=== PATIENT | female | born 1940 | race Caucasian/White ===

== ENCOUNTER 2018-06-12 12:35 | Inpatient (IN) | payer MEDICARE ==
[~2018-06-12] VITALS: Ht 149.9 cm; Wt 57.0 kg
--- NOTE | 2018-06-12 12:41 | NUR ---
PT IN BR.
[2018-06-12 13:27] LABS: BASOPHILS # (AUTO) 0.04 x10^3/uL (0-0.1); BASOPHILS % (AUTO) 1 % (0-1); EOSINOPHILS % (AUTO) 2 % (1-7); LYMPHOCYTES # (AUTO) 0.73 x10^3/uL (1-3.4); LYMPHOCYTES % (AUTO) 12 % (22-44); MD NO; MEAN CORPUSCULAR HEMOGLOBIN 27.5 pg (27.0-34.8); MEAN CORPUSCULAR HGB CONC 33.3 g/dL (32.4-35.8); MEAN CORPUSCULAR VOLUME 82.4 fL (80-100); MONOCYTES # (AUTO) 0.46 x10^3/uL (0.2-0.8); MONOCYTES % (AUTO) 7 % (2-9); NEUTROPHILS # (AUTO) 5.02 x10^3/uL (1.8-6.8); NEUTROPHILS % (AUTO) 79 % (42-75); PLATELET COUNT 396 x10^3/uL (130-400); RED BLOOD COUNT 4.96 x10^6/uL (3.82-5.3); RED CELL DISTRIBUTION WIDTH 14.1 % (9.6-15.2)
[2018-06-12 13:38] LABS: ALBUMIN 2.7 g/dL (3.4-5.0); ANION GAP 5 mmol/L (5-15); CALCIUM 8.5 mg/dL (8.5-10.1); CHLORIDE 108 mmol/L (98-107); CREATININE 0.76 mg/dL (0.55-1.02)
[2018-06-12 13:43] LABS: TROPONIN I < 0.015 ng/mL (0.000-0.045)
--- NOTE | 2018-06-12 14:00 | NUR ---
pt to ed room 37 from lobby at this time
[2018-06-12] MEDS ORDERED: LIDOCAINE-MPF 1%, 5ML ONE (14:09)
--- NOTE | 2018-06-12 14:23 | NUR ---
pt in IR for thoracentesis
--- NOTE | 2018-06-12 15:12 | NUR ---
REPORT FROM EDNA VICTOR. PT RETURNED FROM IR. PT REPORTS 11/14 R SIDED CHEST 'PRESSURE'. PT STATES SIMILAR PAIN WITH LAST THOROCENTESIS 'A FEW WEEKS AGO'. SPO2 >90% ON 4L BY NC. RESPIRATIONS EVEN/SHALLOW. FRIEND AT BS. BP/SPO2 MONITOR IN PLACE.
[2018-06-12] MEDS ORDERED: OXYcodone/APAP 10/325MG TABLET ONE (16:23)
[2018-06-12] MEDS ORDERED: OXYcodone/APAP 10/325MG TABLET PO ONE (16:30)
--- NOTE | 2018-06-12 16:37 | NUR ---
PT MEDICATED PER EMAR. IV ESTABLISHED. PT TO BE ADMITTED
--- NOTE | 2018-06-12 16:40 | NUR ---
PT ASSISTED TO BEDSIDE COMMODE. SLIGHT INCREASE IN WOB/SOB W/ ACTIVITY. SPO2 >90% ON 4L BY NC. SO STATES THAT PT WEARS 2-4L O2 BY NC AT BASELINE.
--- NOTE | 2018-06-12 17:01 | NUR ---
REPORT TO EDNA DONIS ON ONC. PT PREPARED FOR TRANSPORT
[2018-06-12 17:56] VITALS: BP 133/87
[2018-06-12] MEDS ORDERED: BISACODYL 10 MG SUPP PR PRN (18:00)
[2018-06-12] MEDS ORDERED: morphine SULFATE 10 MG/ML, 1ML IVPush PRN (18:00)
[2018-06-12] MEDS ORDERED: hydrALAzine 20 MG/ML, 1ML IVPush PRN (18:00)
[2018-06-12] MEDS ORDERED: ONDANSETRON ODT 4 MG PO PRN (18:00)
[2018-06-12] MEDS ORDERED: DOCUSATE 100 MG CAPSULE PO PRN (18:00)
[2018-06-12] MEDS ORDERED: ACETAMINOPHEN 325 MG TABLET PO PRN (18:00)
[2018-06-12] MEDS ORDERED: POLYETHYLENE GLYCOL 17 GM PACKET PO PRN (18:00)
[2018-06-12] MEDS ORDERED: ZOLPIDEM 5MG TABLET PO PRN (18:00)
[2018-06-12] MEDS ORDERED: LIDODERM 5% PATCH TD PRN (18:00)
[2018-06-12] MEDS ORDERED: ONDANSETRON 2MG/ML, 2ML IVPush PRN (18:00)
[2018-06-12] MEDS: ENOXAPARIN 40 MG/0.4 ML SQ SCH (18:00)
[2018-06-12 18:22] LABS: FREE T4 (FREE THYROXINE) 1.15 ng/dL (0.76-1.46); THYROID STIMULATING HORMONE 8.75 mIU/L (0.358-3.740)
[2018-06-12 20:00] VITALS: BP 129/83
[2018-06-12] MEDS: FAMOTIDINE 20 MG TABLET PO SCH (21:55)
[2018-06-13 01:05] VITALS: BP 121/80
[2018-06-13 05:03] LABS: BASOPHILS # (AUTO) 0.03 x10^3/uL (0-0.1); BASOPHILS % (AUTO) 1 % (0-1); EOSINOPHILS % (AUTO) 2 % (1-7); LYMPHOCYTES # (AUTO) 0.61 x10^3/uL (1-3.4); LYMPHOCYTES % (AUTO) 12 % (22-44); MD NO; MEAN CORPUSCULAR HEMOGLOBIN 27.1 pg (27.0-34.8); MEAN CORPUSCULAR HGB CONC 32.7 g/dL (32.4-35.8); MEAN CORPUSCULAR VOLUME 82.8 fL (80-100); MEAN PLATELET VOLUME 7.2 fL (7.4-10.4); MONOCYTES # (AUTO) 0.35 x10^3/uL (0.2-0.8); MONOCYTES % (AUTO) 7 % (2-9); NEUTROPHILS # (AUTO) 4.14 x10^3/uL (1.8-6.8); NEUTROPHILS % (AUTO) 79 % (42-75); PLATELET COUNT 369 x10^3/uL (130-400); RED CELL DISTRIBUTION WIDTH 13.9 % (9.6-15.2)
[2018-06-13 05:08] LABS: ANION GAP 5 mmol/L (5-15); CALCIUM 8.6 mg/dL (8.5-10.1); CHLORIDE 108 mmol/L (98-107)
[2018-06-13 05:10] LABS: CREATININE 0.67 mg/dL (0.55-1.02)
[2018-06-13 07:51] VITALS: BP 114/78
[2018-06-13] MEDS: FAMOTIDINE 20 MG TABLET PO SCH (09:31)
[2018-06-13 13:51] VITALS: BP 102/70
[2018-06-13] MEDS: ENOXAPARIN 40 MG/0.4 ML SQ SCH (18:00)
== END 2018-06-13 19:23 | disposition home or self-care (01) | DRG 186 ==
LOC: ED 16:04 → EDIP 16:29 → 3NW 17:23
PROVIDERS: ADMIT Internal Medicine; ATTEND Internal Medicine
PROC: 0W993ZZ Drainage of Right Pleural Cavity, Percutaneous Approach (ICD-10-PCS; principal; 2018-06-12)
DX: J90 Pleural effusion, not elsewhere classified (principal); J96.01 Acute respiratory failure with hypoxia; J98.11 Atelectasis; E03.9 Hypothyroidism, unspecified; Z92.21 Personal history of antineoplastic chemotherapy; Z92.3 Personal history of irradiation; Z85.3 Personal history of malignant neoplasm of breast; Z90.11 Acquired absence of right breast and nipple
CPT/HCPCS: 32555; 36415; 71045; 80048; 82040; 84439; 84443; 84484; 85025; 93005; 99285; G0378

== ENCOUNTER → 2018-06-16 | Outpatient (CLI) | payer MEDICARE ==
[~2018-06-16] MED LIST: LIDOCAINE-MPF 1%, 5ML ONE
== END | disposition home or self-care (01) ==
LOC: RAD 14:18
PROVIDERS: ATTEND Internal Medicine Hematology & Oncology
DX: J91.0 Malignant pleural effusion (principal)
CPT/HCPCS: 32555; 71045

== ENCOUNTER → 2018-06-19 | Outpatient (CLI) | payer MEDICARE | END | disposition home or self-care (01) | LOC: RAD 14:20 | PROVIDERS: ATTEND Internal Medicine Hematology & Oncology | DX: J90 Pleural effusion, not elsewhere classified (principal) | CPT/HCPCS: 32555 ==

== ENCOUNTER 2018-06-24 21:11 | Inpatient (IN) | payer MEDICARE ==
[~2018-06-24] VITALS: Ht 149.9 cm; Wt 61.6 kg
[2018-06-24] MEDS ORDERED: PROPOFOL 100 ML IV ONE (21:17)
[2018-06-24] MEDS ORDERED: SODIUM CHLORIDE FLUSH 10ML SYR IVF ONE (21:30)
[2018-06-24] MEDS ORDERED: PLEASE ENTER HEIGHT AND WEIGHT MC SCH (21:30)
[2018-06-24] MEDS ORDERED: PROPOFOL 100 ML IV SCH (21:30)
[2018-06-24 21:39] LABS: BASOPHILS % (AUTO) 0 % (0-1); EOSINOPHILS # (AUTO) 0.02 x10^3/uL (0-0.4); EOSINOPHILS % (AUTO) 0 % (1-7); LYMPHOCYTES # (AUTO) 0.46 x10^3/uL (1-3.4); LYMPHOCYTES % (AUTO) 5 % (22-44); MD NO; MEAN CORPUSCULAR HEMOGLOBIN 27.4 pg (27.0-34.8); MEAN CORPUSCULAR HGB CONC 33.2 g/dL (32.4-35.8); MEAN CORPUSCULAR VOLUME 82.5 fL (80-100); MONOCYTES # (AUTO) 0.07 x10^3/uL (0.2-0.8); MONOCYTES % (AUTO) 1 % (2-9); NEUTROPHILS # (AUTO) 7.86 x10^3/uL (1.8-6.8); NEUTROPHILS % (AUTO) 93 % (42-75); PLATELET COUNT 394 x10^3/uL (130-400); RED BLOOD COUNT 4.63 x10^6/uL (3.82-5.3)
[2018-06-24 21:48] LABS: INTERNATIONAL NORMALIZED RATIO 1.01 (0.93-1.1); PROTHROMBIN TIME 10.6 Seconds (9.6-11.5)
[2018-06-24 21:51] LABS: ALANINE AMINOTRANSFERASE 44 U/L (12-78); ALBUMIN 2.5 g/dL (3.4-5.0); ANION GAP 7 mmol/L (5-15); CALCIUM 8.4 mg/dL (8.5-10.1); CHLORIDE 105 mmol/L (98-107); CREATININE 0.61 mg/dL (0.55-1.02)
[2018-06-24 21:55] LABS: ALKALINE PHOSPHATASE 188 U/L (45-117); BILIRUBIN,TOTAL 0.6 mg/dL (0.2-1.0); TOTAL PROTEIN 6.2 g/dL (6.4-8.2); TROPONIN I < 0.015 ng/mL (0.000-0.045)
[2018-06-24] MEDS ORDERED: SENNOSIDES 8.8 MG/5 ML ORAL SOL NG PRN (22:30)
[2018-06-24] MEDS ORDERED: FUROSEMIDE 20 MG/2 ML IV ONE (22:30)
[2018-06-24] MEDS ORDERED: FENTANYL PF 100 MCG/2ML IVPush PRN (22:30)
[2018-06-24] MEDS ORDERED: SENNA/DOCUSATE TABLET NG PRN (22:30)
[2018-06-24] MEDS ORDERED: LIDOCAINE-MPF 1%, 2ML ENDO PRN (22:30)
[2018-06-24] MEDS ORDERED: PHARMACY MAY ADJ FOR RENAL FX MC SCH (22:30)
[2018-06-24] MEDS ORDERED: BISACODYL 10 MG SUPP PR PRN (22:30)
[2018-06-24] MEDS ORDERED: FUROSEMIDE 20 MG/2 ML ONE (22:51)
[2018-06-24] MEDS: FAMOTIDINE 20 MG/2 ML IV SCH (23:48)
[2018-06-25 00:24] VITALS: BP 91/59
[2018-06-25] MEDS: ALBUTEROL/IPRATROPIUM 2.5MG/0.5MG, 3 ML INLINE SCH ×6 (02:33→22:30)
[2018-06-25 04:00] VITALS: BP 90/58
[2018-06-25] MEDS: PROPOFOL 100 ML IV PRN ×2 (04:24→14:47)
[2018-06-25 04:25] LABS: BASOPHILS # (AUTO) 0.02 x10^3/uL (0-0.1); BASOPHILS % (AUTO) 0 % (0-1); EOSINOPHILS # (AUTO) 0.03 x10^3/uL (0-0.4); EOSINOPHILS % (AUTO) 0 % (1-7); LYMPHOCYTES # (AUTO) 0.75 x10^3/uL (1-3.4); LYMPHOCYTES % (AUTO) 9 % (22-44); MD NO; MEAN CORPUSCULAR HEMOGLOBIN 27.8 pg (27.0-34.8); MEAN CORPUSCULAR HGB CONC 33.9 g/dL (32.4-35.8); MEAN CORPUSCULAR VOLUME 81.9 fL (80-100); MEAN PLATELET VOLUME 6.9 fL (7.4-10.4); MONOCYTES # (AUTO) 0.37 x10^3/uL (0.2-0.8); MONOCYTES % (AUTO) 5 % (2-9); NEUTROPHILS # (AUTO) 6.93 x10^3/uL (1.8-6.8); NEUTROPHILS % (AUTO) 86 % (42-75); PLATELET COUNT 341 x10^3/uL (130-400); RED BLOOD COUNT 4.18 x10^6/uL (3.82-5.3)
[2018-06-25 04:37] LABS: ALANINE AMINOTRANSFERASE 37 U/L (12-78); ALBUMIN 2.4 g/dL (3.4-5.0); ANION GAP 6 mmol/L (5-15); CALCIUM 8.3 mg/dL (8.5-10.1); CHLORIDE 106 mmol/L (98-107)
[2018-06-25 04:40] LABS: ALKALINE PHOSPHATASE 155 U/L (45-117); BILIRUBIN,TOTAL 0.9 mg/dL (0.2-1.0); CREATININE 0.73 mg/dL (0.55-1.02); TOTAL PROTEIN 5.4 g/dL (6.4-8.2)
[2018-06-25] MEDS: FAMOTIDINE 20 MG/2 ML IV SCH ×2 (09:22→23:12)
--- NOTE | 2018-06-25 10:17 | NUR ---
TF GOAL: w/ propofol: PROMOTE @ 45ML/HR off propofol: PROMOTE @ 50ML/HR
[2018-06-25 11:48] LABS: MICROSCOPIC NOT IND
[2018-06-25 11:49] LABS: CULTURE INDICATED? NO
[2018-06-25] MEDS ORDERED: LIDOCAINE-MPF 1%, 5ML ONE (12:41)
[2018-06-25] MEDS ORDERED: LIDOCAINE 1%, 20ML ONE (12:41)
[2018-06-25] MEDS: SODIUM CHLORIDE 0.9% 1,000 ML IV SCH (15:58)
[2018-06-26] MEDS: PROPOFOL 100 ML IV PRN ×2 (02:16→11:52)
[2018-06-26] MEDS: ALBUTEROL/IPRATROPIUM 2.5MG/0.5MG, 3 ML INLINE SCH ×4 (02:30→14:30)
[2018-06-26 04:00] VITALS: BP 128/85
[2018-06-26 04:45] LABS: BASOPHILS # (AUTO) 0.01 x10^3/uL (0-0.1); BASOPHILS % (AUTO) 0 % (0-1); EOSINOPHILS # (AUTO) 0.03 x10^3/uL (0-0.4); EOSINOPHILS % (AUTO) 1 % (1-7); LYMPHOCYTES # (AUTO) 0.54 x10^3/uL (1-3.4); LYMPHOCYTES % (AUTO) 8 % (22-44); MD NO; MEAN CORPUSCULAR HEMOGLOBIN 27.7 pg (27.0-34.8); MEAN CORPUSCULAR HGB CONC 33.6 g/dL (32.4-35.8); MEAN CORPUSCULAR VOLUME 82.6 fL (80-100); MEAN PLATELET VOLUME 7.5 fL (7.4-10.4); MONOCYTES # (AUTO) 0.49 x10^3/uL (0.2-0.8); MONOCYTES % (AUTO) 7 % (2-9); NEUTROPHILS # (AUTO) 6.04 x10^3/uL (1.8-6.8); NEUTROPHILS % (AUTO) 85 % (42-75); PLATELET COUNT 316 x10^3/uL (130-400); RED BLOOD COUNT 3.92 x10^6/uL (3.82-5.3); RED CELL DISTRIBUTION WIDTH 14.3 % (9.6-15.2)
[2018-06-26 05:06] LABS: ANION GAP 6 mmol/L (5-15); CALCIUM 7.6 mg/dL (8.5-10.1); CHLORIDE 109 mmol/L (98-107); CREATININE 0.68 mg/dL (0.55-1.02)
[2018-06-26] MEDS: SODIUM CHLORIDE 0.9% 1,000 ML IV SCH ×2 (05:25→17:57)
[2018-06-26] MEDS ORDERED: SIMETHICONE 125 MG CHEW TAB PO PRN (09:00)
[2018-06-26] MEDS: FAMOTIDINE 20 MG/2 ML IV SCH ×2 (09:54→22:51)
[2018-06-26] MEDS ORDERED: LIDOCAINE-MPF 1%, 5ML ONE (14:34)
[2018-06-26] MEDS: HEPARIN 5,000 UNITS/ML, 1ML SQ SCH ×2 (15:00→16:39)
[2018-06-26] MEDS ORDERED: FENTANYL PF 100 MCG/2ML ONE (15:01)
[2018-06-26] MEDS: ACETAMINOPHEN 325 MG TABLET PO PRN (18:04)
[2018-06-27] MEDS: ACETAMINOPHEN 325 MG TABLET PO PRN ×4 (00:13→16:21)
[2018-06-27] MEDS: HEPARIN 5,000 UNITS/ML, 1ML SQ SCH ×3 (01:56→17:36)
[2018-06-27 04:00] VITALS: BP 127/84
[2018-06-27] MEDS: LACTULOSE 20 GM/30 ML UDC NG PRN (05:36)
[2018-06-27 06:57] LABS: BASOPHILS # (AUTO) 0.01 x10^3/uL (0-0.1); BASOPHILS % (AUTO) 0 % (0-1); EOSINOPHILS % (AUTO) 1 % (1-7); LYMPHOCYTES % (AUTO) 8 % (22-44); MD NO; MEAN CORPUSCULAR HEMOGLOBIN 27.7 pg (27.0-34.8); MEAN CORPUSCULAR HGB CONC 33.6 g/dL (32.4-35.8); MEAN CORPUSCULAR VOLUME 82.2 fL (80-100); MEAN PLATELET VOLUME 7.4 fL (7.4-10.4); MONOCYTES # (AUTO) 0.55 x10^3/uL (0.2-0.8); MONOCYTES % (AUTO) 8 % (2-9); NEUTROPHILS # (AUTO) 5.89 x10^3/uL (1.8-6.8); NEUTROPHILS % (AUTO) 83 % (42-75); PLATELET COUNT 323 x10^3/uL (130-400); RED BLOOD COUNT 4.39 x10^6/uL (3.82-5.3); RED CELL DISTRIBUTION WIDTH 14.6 % (9.6-15.2)
[2018-06-27 07:08] LABS: ANION GAP 6 mmol/L (5-15); CALCIUM 8.3 mg/dL (8.5-10.1); CHLORIDE 112 mmol/L (98-107); CREATININE 0.61 mg/dL (0.55-1.02)
[2018-06-27] MEDS: SODIUM CHLORIDE 0.9% 1,000 ML IV SCH ×2 (08:59→21:30)
[2018-06-27] MEDS: FAMOTIDINE 20 MG/2 ML IV SCH ×2 (09:05→22:35)
[2018-06-27] MEDS ORDERED: ACETAMINOPHEN 650 MG/20.3 ML UDC PO PRN (17:30)
[2018-06-27 20:42] VITALS: BP 137/87
[2018-06-27] MEDS: OXYcodone 5 MG/5 ML ORAL.SOL UDC PO PRN (21:30)
[2018-06-28] VITALS: BP 135/80
[2018-06-28] MEDS: HEPARIN 5,000 UNITS/ML, 1ML SQ SCH ×3 (01:32→17:34)
[2018-06-28] MEDS: OXYcodone 5 MG/5 ML ORAL.SOL UDC PO PRN ×5 (01:32→22:18)
[2018-06-28 03:54] VITALS: BP 122/79
[2018-06-28 04:02] LABS: BASOPHILS # (AUTO) 0.06 x10^3/uL (0-0.1); BASOPHILS % (AUTO) 1 % (0-1); EOSINOPHILS # (AUTO) 0.18 x10^3/uL (0-0.4); EOSINOPHILS % (AUTO) 3 % (1-7); LYMPHOCYTES # (AUTO) 0.61 x10^3/uL (1-3.4); LYMPHOCYTES % (AUTO) 9 % (22-44); MD NO; MEAN CORPUSCULAR HEMOGLOBIN 26.6 pg (27.0-34.8); MEAN CORPUSCULAR HGB CONC 32.2 g/dL (32.4-35.8); MEAN CORPUSCULAR VOLUME 82.6 fL (80-100); MEAN PLATELET VOLUME 7.2 fL (7.4-10.4); MONOCYTES # (AUTO) 0.51 x10^3/uL (0.2-0.8); MONOCYTES % (AUTO) 7 % (2-9); NEUTROPHILS # (AUTO) 5.84 x10^3/uL (1.8-6.8); NEUTROPHILS % (AUTO) 81 % (42-75); PLATELET COUNT 326 x10^3/uL (130-400); RED BLOOD COUNT 4.23 x10^6/uL (3.82-5.3); RED CELL DISTRIBUTION WIDTH 14.4 % (9.6-15.2)
[2018-06-28 04:10] LABS: ANION GAP 7 mmol/L (5-15); CALCIUM 8.1 mg/dL (8.5-10.1); CHLORIDE 112 mmol/L (98-107); CREATININE 0.51 mg/dL (0.55-1.02)
[2018-06-28 06:49] VITALS: BP 114/79
[2018-06-28] MEDS: FAMOTIDINE 20 MG/2 ML IV SCH ×2 (10:28→22:19)
[2018-06-28] MEDS: SODIUM CHLORIDE 0.9% 1,000 ML IV SCH ×2 (11:25→22:51)
[2018-06-28 12:09] VITALS: BP 113/76
[2018-06-28 19:29] VITALS: BP 113/73
[2018-06-29] MEDS: OXYcodone 5 MG/5 ML ORAL.SOL UDC PO PRN ×5 (00:49→22:51)
[2018-06-29] MEDS: HEPARIN 5,000 UNITS/ML, 1ML SQ SCH ×3 (00:49→17:00)
[2018-06-29 01:04] VITALS: BP 112/68
[2018-06-29 06:08] LABS: BASOPHILS # (AUTO) 0.03 x10^3/uL (0-0.1); BASOPHILS % (AUTO) 1 % (0-1); EOSINOPHILS # (AUTO) 0.13 x10^3/uL (0-0.4); EOSINOPHILS % (AUTO) 2 % (1-7); LYMPHOCYTES # (AUTO) 0.87 x10^3/uL (1-3.4); LYMPHOCYTES % (AUTO) 16 % (22-44); MD NO; MEAN CORPUSCULAR HEMOGLOBIN 27.4 pg (27.0-34.8); MEAN CORPUSCULAR HGB CONC 33.4 g/dL (32.4-35.8); MEAN PLATELET VOLUME 7.8 fL (7.4-10.4); MONOCYTES # (AUTO) 0.52 x10^3/uL (0.2-0.8); MONOCYTES % (AUTO) 9 % (2-9); NEUTROPHILS % (AUTO) 73 % (42-75); PLATELET COUNT 332 x10^3/uL (130-400); RED BLOOD COUNT 4.13 x10^6/uL (3.82-5.3); RED CELL DISTRIBUTION WIDTH 15.1 % (9.6-15.2)
[2018-06-29 06:12] LABS: ANION GAP 7 mmol/L (5-15); CALCIUM 8.2 mg/dL (8.5-10.1); CHLORIDE 111 mmol/L (98-107)
[2018-06-29 06:15] LABS: CREATININE 0.66 mg/dL (0.55-1.02)
[2018-06-29 06:27] VITALS: BP 103/67
[2018-06-29 11:13] VITALS: BP 107/68
[2018-06-29] MEDS: FAMOTIDINE 20 MG/2 ML IV SCH (11:19)
[2018-06-29 12:11] VITALS: BP 109/71
[2018-06-29] MEDS: SODIUM CHLORIDE 0.9% 1,000 ML IV SCH (13:09)
[2018-06-29 18:59] VITALS: BP 124/72
[2018-06-29] MEDS: SENNA/DOCUSATE TABLET PO SCH (20:14)
[2018-06-30] MEDS: OXYcodone 5 MG/5 ML ORAL.SOL UDC PO PRN ×4 (01:23→20:07)
[2018-06-30] MEDS: HEPARIN 5,000 UNITS/ML, 1ML SQ SCH ×3 (01:23→17:54)
[2018-06-30 01:24] VITALS: BP 118/75
[2018-06-30] MEDS: SODIUM CHLORIDE 0.9% 1,000 ML IV SCH ×2 (04:58→19:21)
[2018-06-30 05:35] LABS: BASOPHILS # (AUTO) 0.03 x10^3/uL (0-0.1); BASOPHILS % (AUTO) 1 % (0-1); EOSINOPHILS # (AUTO) 0.15 x10^3/uL (0-0.4); EOSINOPHILS % (AUTO) 3 % (1-7); LYMPHOCYTES # (AUTO) 0.89 x10^3/uL (1-3.4); LYMPHOCYTES % (AUTO) 16 % (22-44); MD NO; MEAN CORPUSCULAR HEMOGLOBIN 27.8 pg (27.0-34.8); MEAN CORPUSCULAR HGB CONC 33.9 g/dL (32.4-35.8); MEAN PLATELET VOLUME 7.2 fL (7.4-10.4); MONOCYTES # (AUTO) 0.54 x10^3/uL (0.2-0.8); MONOCYTES % (AUTO) 10 % (2-9); NEUTROPHILS # (AUTO) 4.05 x10^3/uL (1.8-6.8); NEUTROPHILS % (AUTO) 72 % (42-75); PLATELET COUNT 316 x10^3/uL (130-400); RED BLOOD COUNT 4.02 x10^6/uL (3.82-5.3); RED CELL DISTRIBUTION WIDTH 14.4 % (9.6-15.2)
[2018-06-30 05:52] LABS: CHLORIDE 113 mmol/L (98-107)
[2018-06-30 06:01] LABS: ALANINE AMINOTRANSFERASE 41 U/L (12-78); ALBUMIN 1.9 g/dL (3.4-5.0); ALKALINE PHOSPHATASE 155 U/L (45-117); ANION GAP 5 mmol/L (5-15); BILIRUBIN,TOTAL 0.7 mg/dL (0.2-1.0); TOTAL PROTEIN 5.1 g/dL (6.4-8.2)
[2018-06-30 08:51] VITALS: BP 111/71
[2018-06-30] MEDS: SENNA/DOCUSATE TABLET PO SCH ×2 (10:48→21:00)
[2018-06-30 14:25] VITALS: BP 113/62
[2018-06-30 19:51] VITALS: BP 115/74
[2018-06-30] MEDS: LACTULOSE 20 GM/30 ML UDC NG PRN (20:10)
[2018-07-01 01:45] VITALS: BP 109/68
[2018-07-01] MEDS: HEPARIN 5,000 UNITS/ML, 1ML SQ SCH ×2 (02:19→09:05)
[2018-07-01 05:26] LABS: BASOPHILS # (AUTO) 0.01 x10^3/uL (0-0.1); BASOPHILS % (AUTO) 0 % (0-1); EOSINOPHILS % (AUTO) 2 % (1-7); LYMPHOCYTES # (AUTO) 0.43 x10^3/uL (1-3.4); LYMPHOCYTES % (AUTO) 9 % (22-44); MD NO; MEAN CORPUSCULAR HEMOGLOBIN 27.3 pg (27.0-34.8); MEAN CORPUSCULAR HGB CONC 33.2 g/dL (32.4-35.8); MEAN CORPUSCULAR VOLUME 82.3 fL (80-100); MEAN PLATELET VOLUME 6.9 fL (7.4-10.4); MONOCYTES # (AUTO) 0.48 x10^3/uL (0.2-0.8); MONOCYTES % (AUTO) 10 % (2-9); NEUTROPHILS # (AUTO) 3.65 x10^3/uL (1.8-6.8); NEUTROPHILS % (AUTO) 78 % (42-75); PLATELET COUNT 287 x10^3/uL (130-400); RED BLOOD COUNT 3.61 x10^6/uL (3.82-5.3); RED CELL DISTRIBUTION WIDTH 14.8 % (9.6-15.2)
[2018-07-01 05:32] LABS: ANION GAP 6 mmol/L (5-15); CALCIUM 7.7 mg/dL (8.5-10.1); CHLORIDE 112 mmol/L (98-107); CREATININE 0.45 mg/dL (0.55-1.02)
[2018-07-01 06:43] VITALS: BP 105/69
[2018-07-01] MEDS: OXYcodone 5 MG/5 ML ORAL.SOL UDC PO PRN ×2 (07:41→13:14)
[2018-07-01] MEDS: SENNA/DOCUSATE TABLET PO SCH (09:00)
[2018-07-01] MEDS ORDERED: LACT20SO13 NG (13:10)
[2018-07-01] MEDS ORDERED: OXYC5SOL8 PO (13:10)
[2018-07-01] MEDS ORDERED: SENN-177 PO (13:10)
== END 2018-07-01 13:32 | disposition hospice, home (50) | DRG 208 ==
LOC: ED 22:03 → EDIP 23:23 → CCU 23:27 → 3NW 06-27 15:58
PROVIDERS: ADMIT Internal Medicine Critical Care Medicine; ATTEND Internal Medicine Critical Care Medicine
PROC: 0BH17EZ Insertion of Endotracheal Airway into Trachea, Via Natural or Artificial Opening (ICD-10-PCS; principal; 2018-06-24)
PROC: 5A1945Z Respiratory Ventilation, 24-96 Consecutive Hours (ICD-10-PCS; 2018-06-24)
PROC: 0T9B70Z Drainage of Bladder with Drainage Device, Via Natural or Artificial Opening (ICD-10-PCS; 2018-06-25)
PROC: 0W9930Z Drainage of Right Pleural Cavity with Drainage Device, Percutaneous Approach (ICD-10-PCS; 2018-06-25)
PROC: 0W9B30Z Drainage of Left Pleural Cavity with Drainage Device, Percutaneous Approach (ICD-10-PCS; 2018-06-26)
PROC: 0W9930Z Drainage of Right Pleural Cavity with Drainage Device, Percutaneous Approach (ICD-10-PCS; 2018-06-26)
DX: J96.01 Acute respiratory failure with hypoxia (principal); E43 Unspecified severe protein-calorie malnutrition; G93.41 Metabolic encephalopathy; C79.51 Secondary malignant neoplasm of bone; I50.32 Chronic diastolic (congestive) heart failure; J91.0 Malignant pleural effusion; J98.11 Atelectasis; R59.0 Localized enlarged lymph nodes; C50.919 Malignant neoplasm of unspecified site of unspecified female breast; D63.8 Anemia in other chronic diseases classified elsewhere; Z51.5 Encounter for palliative care; I35.8 Other nonrheumatic aortic valve disorders; Z17.0 Estrogen receptor positive status [ER+]; Z17.1 Estrogen receptor negative status [ER-]; Z82.49 Family history of ischemic heart disease and other diseases of the circulatory system; Z85.3 Personal history of malignant neoplasm of breast; Z90.11 Acquired absence of right breast and nipple; Z92.21 Personal history of antineoplastic chemotherapy; Z92.3 Personal history of irradiation; Z99.81 Dependence on supplemental oxygen; Z68.27 Body mass index [BMI] 27.0-27.9, adult
CPT/HCPCS: 32550; 36415; 36600; 71045; 80048; 80053; 81003; 82803; 83735; 83880; 84100; 84478; 84484; 85025; 85610; 87070; 87081; 87205; 93005; 93306; 94002; 94003; 94150; 96374; 96375; 99291; G0378; J1644; J2704; J3010; J3490; J7620; C1729; J1940; J7030

== ENCOUNTER 2018-07-09 12:55 | Observation (INO) | payer MEDICARE ==
[~2018-07-09] VITALS: Ht 149.9 cm; Wt 56.0 kg
[~2018-07-09 12:55] MED LIST changes: +LACT20SO13 NG; -LIDOCAINE-MPF 1%, 5ML ONE; +OXYC5SOL8 PO; +SENN-177 PO
--- NOTE | 2018-07-09 13:58 | NUR ---
THIS IS A 77 YEAR OLD FEMALE WHO HAS HX OF CA. PT C/O OF RIGHT CHEST TUBE "FELL OUT".
--- NOTE | 2018-07-09 14:47 | NUR ---
REPORT RECEIVED, CARE ASSUMED. PT SITTING UP ON GURNEY, NO ACUTE DISTRESS NOTED. FAMILY AT BEDSIDE. WAITING FOR FURTHER DISPOSITION. NO NEEDS EXPRESSED AT THIS TIME.
--- NOTE | 2018-07-09 15:16 | NUR ---
DR HERNANDEZ AT BEDSIDE TO DISCUSS OPTIONS WITH PT AND PTS DAUGHTER
[2018-07-09] MEDS ORDERED: SODIUM CHLORIDE FLUSH 10ML SYR IVF ONE (15:30)
[2018-07-09] MEDS ORDERED: SODIUM CHLORIDE FLUSH 10ML SYR IVF PRN (16:00)
--- NOTE | 2018-07-09 16:19 | NUR ---
PT AMB TO BR WITH SBA
[2018-07-09 16:27] LABS: BASOPHILS # (AUTO) 0.01 x10^3/uL (0-0.1); BASOPHILS % (AUTO) 0 % (0-1); EOSINOPHILS % (AUTO) 0 % (1-7); LYMPHOCYTES # (AUTO) 0.44 x10^3/uL (1-3.4); LYMPHOCYTES % (AUTO) 11 % (22-44); MD NO; MEAN CORPUSCULAR HEMOGLOBIN 27.1 pg (27.0-34.8); MEAN CORPUSCULAR HGB CONC 32.9 g/dL (32.4-35.8); MEAN CORPUSCULAR VOLUME 82.5 fL (80-100); MEAN PLATELET VOLUME 6.8 fL (7.4-10.4); MONOCYTES # (AUTO) 0.33 x10^3/uL (0.2-0.8); MONOCYTES % (AUTO) 8 % (2-9); NEUTROPHILS # (AUTO) 3.34 x10^3/uL (1.8-6.8); NEUTROPHILS % (AUTO) 81 % (42-75); PLATELET COUNT 327 x10^3/uL (130-400); RED CELL DISTRIBUTION WIDTH 14.3 % (9.6-15.2)
[2018-07-09 16:40] LABS: ALANINE AMINOTRANSFERASE 17 U/L (12-78); ALBUMIN 2.2 g/dL (3.4-5.0); ANION GAP 5 mmol/L (5-15); CALCIUM 8.1 mg/dL (8.5-10.1); CHLORIDE 104 mmol/L (98-107); CREATININE 0.48 mg/dL (0.55-1.02)
--- NOTE | 2018-07-09 16:40 | NUR ---
REPORT CALLED TO CAL BISHOP, POC DISCUSSED.
[2018-07-09 16:43] LABS: ALKALINE PHOSPHATASE 142 U/L (45-117); BILIRUBIN,TOTAL 0.5 mg/dL (0.2-1.0); TOTAL PROTEIN 5.1 g/dL (6.4-8.2)
[2018-07-09] MEDS ORDERED: GUAIFENESIN/COD200MG-20MG/10ML LIQUID PO PRN (17:00)
[2018-07-09] MEDS ORDERED: ACETAMINOPHEN 325 MG TABLET PO PRN (17:00)
[2018-07-09] MEDS ORDERED: morphine SULFATE 10 MG/ML, 1ML IVPush PRN (17:00)
[2018-07-09] MEDS ORDERED: DOCUSATE 100 MG CAPSULE PO PRN (17:00)
[2018-07-09] MEDS ORDERED: ONDANSETRON 2MG/ML, 2ML IVPush PRN (17:00)
[2018-07-09 17:25] VITALS: BP 105/72
[2018-07-09 20:34] VITALS: BP 111/72
[2018-07-10 00:53] VITALS: BP 123/79
[2018-07-10 08:59] VITALS: BP 125/84
[2018-07-10] MEDS ORDERED: ACET325T14 PO (13:39)
== END 2018-07-10 15:10 | disposition home or self-care (01) ==
LOC: ED 15:08 → EDIP 16:41 → 3NW 17:12
PROVIDERS: ADMIT Internal Medicine; ATTEND Internal Medicine
DX: J91.0 Malignant pleural effusion (principal); C50.919 Malignant neoplasm of unspecified site of unspecified female breast; C79.9 Secondary malignant neoplasm of unspecified site; D63.8 Anemia in other chronic diseases classified elsewhere; I50.32 Chronic diastolic (congestive) heart failure; J98.11 Atelectasis; Z85.3 Personal history of malignant neoplasm of breast; Z90.11 Acquired absence of right breast and nipple; Z99.81 Dependence on supplemental oxygen
CPT/HCPCS: 32557; 36415; 71046; 71250; 80053; 85025; 99284; G0378

== ENCOUNTER 2018-08-05 20:19 | Inpatient (IN) | payer MEDICARE ==
[~2018-08-05] VITALS: Ht 149.9 cm; Wt 59.8 kg
[~2018-08-05 20:19] MED LIST changes: +ACET325T14 PO
--- NOTE | 2018-08-05 20:38 | NUR ---
THIS IS A 77 YO FEMALE WHO PRESENTS TO THE ER C/O DRAINAGE FROM A LEFT SIDED THORACENTESIS TUBE THAT WAS ACCIDENTALLY CUT BY FAMILY MEMBER DURING A DRESSING CHANGE. PT ABLE TO TAKE DEEP BREATHS AND IS ABLE TO SPEAK IN SHORT 3-5 WORD SENTENCES W/O DIFFICULTY. PT REPORTS FEELING A LITTLE MORE SOB THAN USUAL. PT PT DOES NOT APPEAR TO BE USING ACCESSORY MUSCLES TO BREATHE AT THIS TIME. SKIN PWD. PT AO X 4. FAMILY AT BEDSIDE. ERMD LAW WAS AT BEDSIDE AND POC DISCUSSED. PT AND FAMILY VERBALIZE UNDERSTANDING OF POC.
--- NOTE | 2018-08-05 20:45 | NUR ---
CHEST TUBE CLAMPED WITH A HEMASTAT AT THIS TIME.
--- NOTE | 2018-08-05 20:55 | NUR ---
[employer] AND RADIOLOGIST SUJIT AT BEDSIDE FOR EVAL.
[2018-08-05] MEDS ORDERED: ACETAMINOPHEN 500 MG TABLET PO ONE (21:30)
[2018-08-05] MEDS ORDERED: PIPERACILLIN/TAZO/PMX 3.375GM 50 ML IVPB ONE (21:30)
[2018-08-05] MEDS ORDERED: VANCOMYCIN PER PHARMACY MC ONE (21:30)
--- NOTE | 2018-08-05 21:52 | NUR ---
RADIOLOGIST SWATHI WAS AT BEDSIDE TO ATTEMPT TO REMOVE THE CHEST TUBE THAT PT HAS BEEN USING FOR THORACENTESIS. UNSUCCESSFUL D/T THE SCAR TISSUE THAT HAS GROWN AROUND THE CATHETER. MD ACEVEDO TIED THE TUBE OFF WITH SILK SUTURES AND IT WAS DRESSED WITH AN OCCULSIVE DRESSING. PT AO X 4. SKIN PWD. AT REST, PT HAS SHALLOW, RAPID BREATHING WITH PURSED LIPS AND VERY SLIGHT USE OF ACCESSORY MUSCLES AND ABLE TO SPEAK IN FULL 5-7 WORD SENTENCES BEFORE BECOMING SOB. WORK OF BREATHING SLIGHTLY INCREASING WITH EXERTION. PT ON CONT BP, CARDIAC AND O2 MONITORS. FAMILY AT BEDSIDE. CALL LIGHT WITHIN REACH.
[2018-08-05] MEDS ORDERED: PIPERACILLIN/TAZO/PMX 3.375GM 50 ML ONE (21:58)
[2018-08-05] MEDS ORDERED: VANCOMYCIN PMX 1GM/200ML 200 ML IVPB ONE (22:00)
[2018-08-05 22:04] LABS: BASOPHILS % (AUTO) 0 % (0-1); EOSINOPHILS # (AUTO) 0.07 x10^3/uL (0-0.4); EOSINOPHILS % (AUTO) 2 % (1-7); LYMPHOCYTES # (AUTO) 0.47 x10^3/uL (1-3.4); LYMPHOCYTES % (AUTO) 11 % (22-44); MD NO; MEAN CORPUSCULAR HEMOGLOBIN 26.9 pg (27.0-34.8); MEAN CORPUSCULAR HGB CONC 32.6 g/dL (32.4-35.8); MEAN CORPUSCULAR VOLUME 82.5 fL (80-100); MEAN PLATELET VOLUME 7.2 fL (7.4-10.4); MONOCYTES # (AUTO) 0.39 x10^3/uL (0.2-0.8); MONOCYTES % (AUTO) 9 % (2-9); NEUTROPHILS # (AUTO) 3.23 x10^3/uL (1.8-6.8); NEUTROPHILS % (AUTO) 78 % (42-75); PLATELET COUNT 338 x10^3/uL (130-400); RED BLOOD COUNT 4.36 x10^6/uL (3.82-5.3); RED CELL DISTRIBUTION WIDTH 17.1 % (9.6-15.2)
--- NOTE | 2018-08-05 22:08 | NUR ---
REPORT TO EDNA ROMERO WHO ASSUMED CARE OF PT.
--- NOTE | 2018-08-05 22:11 | NUR ---
Bedside SBAR report received from RN, Yara. Pt's IV was started on right forearm, pt's daughter and state that pt cannot have IVs or BPs on right arm. This RN to contact oncology physician assistant regarding accessing of port, as it is not a power port. Pt and family aware of POC.
[2018-08-05 22:17] LABS: ALANINE AMINOTRANSFERASE 19 U/L (12-78); ALBUMIN 2.5 g/dL (3.4-5.0); ANION GAP 5 mmol/L (5-15); CALCIUM 8.1 mg/dL (8.5-10.1); CHLORIDE 109 mmol/L (98-107)
[2018-08-05 22:19] LABS: ALKALINE PHOSPHATASE 154 U/L (45-117); BILIRUBIN,TOTAL 0.3 mg/dL (0.2-1.0); CREATININE 0.56 mg/dL (0.55-1.02); TOTAL PROTEIN 5.7 g/dL (6.4-8.2)
--- NOTE | 2018-08-05 22:45 | NUR ---
Port accessed attempted, after instruction from RN with familiarity with this type of port. Port was flushing well with no blood return. Pt stated that it was painful and she had never had pain with accessing her port before. This RN de-accessed the port and started a peripheral IV in left forearm. IV ABX started, pt with wrist band indicating that blood cultures x 2 were drawn.
[2018-08-05] MEDS ORDERED: ACETAMINOPHEN 500 MG TABLET ONE (22:50)
--- NOTE | 2018-08-05 23:19 | NUR ---
Pt up to bedside commode, urine sample collected. Pt very short of breath, speaking 1-2 word sentences for several minutes after getting back to bed.
[2018-08-05] MEDS ORDERED: morphine SULFATE 10 MG/ML, 1ML IVPush PRN (23:30)
[2018-08-05] MEDS ORDERED: ACETAMINOPHEN 325 MG TABLET PO PRN (23:30)
[2018-08-05] MEDS ORDERED: ONDANSETRON 2MG/ML, 2ML IVPush PRN (23:30)
--- NOTE | 2018-08-05 23:38 | NUR ---
Telephone SBAR report given to RNRadha. Pt and made aware of new room assignment.
[2018-08-05 23:41] LABS: MICROSCOPIC NOT IND
[2018-08-05 23:43] LABS: CULTURE INDICATED? NO
[2018-08-06 00:33] VITALS: BP 134/89
[2018-08-06] MEDS: SODIUM CHLORIDE 0.9% 1,000 ML IV SCH ×2 (01:06→09:05)
[2018-08-06 02:00] VITALS: BP 147/91
[2018-08-06 05:31] LABS: ANION GAP 5 mmol/L (5-15); CHLORIDE 111 mmol/L (98-107); CREATININE 0.51 mg/dL (0.55-1.02)
[2018-08-06 05:35] LABS: MEAN CORPUSCULAR HEMOGLOBIN 27.8 pg (27.0-34.8); MEAN CORPUSCULAR HGB CONC 33.9 g/dL (32.4-35.8); MEAN CORPUSCULAR VOLUME 82.2 fL (80-100); PLATELET COUNT 301 x10^3/uL (130-400); RED BLOOD COUNT 4.03 x10^6/uL (3.82-5.3); RED CELL DISTRIBUTION WIDTH 17.2 % (9.6-15.2)
[2018-08-06 06:24] LABS: BASOPHILS # (AUTO) 0.01 x10^3/uL (0-0.1); BASOPHILS % (AUTO) 1 % (0-1); EOSINOPHILS # (AUTO) 0.06 x10^3/uL (0-0.4); EOSINOPHILS % (AUTO) 2 % (1-7); LYMPHOCYTES # (AUTO) 0.46 x10^3/uL (1-3.4); LYMPHOCYTES % (AUTO) 16 % (22-44); MD SCAN; MONOCYTES # (AUTO) 0.38 x10^3/uL (0.2-0.8); MONOCYTES % (AUTO) 13 % (2-9); NEUTROPHILS # (AUTO) 1.93 x10^3/uL (1.8-6.8); NEUTROPHILS % (AUTO) 68 % (42-75)
[2018-08-06] MEDS ORDERED: LEVOFLOXACIN/PMX 750MG/150ML 150 ML IV SCH (09:00)
[2018-08-06] MEDS ORDERED: POTASSIUM CHLORIDE 20 MEQ TAB.ER.PRT PO ONE (09:30)
[2018-08-06 11:24] VITALS: BP 135/76
[2018-08-06] MEDS ORDERED: METOPROLOL 1 MG/ML, 5ML IVPush ONE (11:30)
[2018-08-06 12:16] VITALS: BP 145/91
[2018-08-06] MEDS: METOPROLOL 1 MG/ML, 5ML IVPush PRN ×2 (13:40→13:50)
[2018-08-06] MEDS ORDERED: FENTANYL PF 100 MCG/2ML ONE (14:33)
[2018-08-06] MEDS ORDERED: MIDAZOLAM 1 MG/ML, 5ML ONE (14:33)
[2018-08-06] MEDS ORDERED: NALOXONE 1 MG/ML, 2ML ONE (14:34)
[2018-08-06] MEDS ORDERED: FLUMAZENIL 0.1 MG/1 ML, 5ML ONE (14:34)
[2018-08-06] MEDS ORDERED: VANCOMYCIN PMX 1GM/200ML 200 ML IV ONE (18:00)
[2018-08-06] MEDS ORDERED: GUAIFENESIN/DM 200-20MG, 10ML UDC PO PRN (18:00)
[2018-08-06] MEDS ORDERED: VANCOMYCIN PER PHARMACY MC PRN (18:00)
[2018-08-06] MEDS ORDERED: PHARMACOKINETIC MONITORING MC PRN (18:30)
[2018-08-06] MEDS ORDERED: PHARMACOKINETIC CONSULTATION MC ONE (18:30)
[2018-08-06] MEDS ORDERED: VANCOMYCIN 1,200 MG in SODIUM CHLORIDE 0.9% 250 ML IV ONE (18:30)
[2018-08-06 19:35] LABS: INTERNATIONAL NORMALIZED RATIO 1.02 (0.93-1.1); PROTHROMBIN TIME 10.7 Seconds (9.6-11.5)
[2018-08-06 20:00] VITALS: BP 154/95
[2018-08-06] MEDS: PIPERACILLIN/TAZO/PMX 3.375GM 50 ML IV SCH (21:48)
[2018-08-07 01:29] VITALS: BP 137/92
[2018-08-07] MEDS: METOPROLOL 1 MG/ML, 5ML IVPush PRN (01:47)
[2018-08-07] MEDS: PIPERACILLIN/TAZO/PMX 3.375GM 50 ML IV SCH ×4 (04:09→21:11)
[2018-08-07 07:26] VITALS: BP 130/83
[2018-08-07 09:40] LABS: BASOPHILS # (AUTO) 0.01 x10^3/uL (0-0.1); BASOPHILS % (AUTO) 0 % (0-1); EOSINOPHILS # (AUTO) 0.02 x10^3/uL (0-0.4); EOSINOPHILS % (AUTO) 1 % (1-7); LYMPHOCYTES # (AUTO) 0.52 x10^3/uL (1-3.4); LYMPHOCYTES % (AUTO) 12 % (22-44); MD NO; MEAN CORPUSCULAR HEMOGLOBIN 26.8 pg (27.0-34.8); MEAN CORPUSCULAR HGB CONC 32.1 g/dL (32.4-35.8); MEAN CORPUSCULAR VOLUME 83.4 fL (80-100); MEAN PLATELET VOLUME 6.9 fL (7.4-10.4); MONOCYTES # (AUTO) 0.29 x10^3/uL (0.2-0.8); MONOCYTES % (AUTO) 7 % (2-9); NEUTROPHILS # (AUTO) 3.32 x10^3/uL (1.8-6.8); NEUTROPHILS % (AUTO) 80 % (42-75); PLATELET COUNT 328 x10^3/uL (130-400); RED BLOOD COUNT 4.35 x10^6/uL (3.82-5.3); RED CELL DISTRIBUTION WIDTH 17.6 % (9.6-15.2)
[2018-08-07 09:55] LABS: CHLORIDE 111 mmol/L (98-107)
[2018-08-07 09:59] LABS: ANION GAP 5 mmol/L (5-15); CALCIUM 8.4 mg/dL (8.5-10.1); CREATININE 0.64 mg/dL (0.55-1.02)
[2018-08-07 14:47] VITALS: BP 119/78
[2018-08-07] MEDS: METOPROLOL TARTRATE 25 MG TABLET PO SCH (17:46)
[2018-08-07 19:42] VITALS: BP_SYST 153; BP_SYST 163; BP_DIAS 64; BP_DIAS 97
[2018-08-07] MEDS ORDERED: VANCOMYCIN PMX 1GM/200ML 200 ML IV SCH (21:00)
[2018-08-08 01:37] VITALS: BP 137/79
[2018-08-08] MEDS: PIPERACILLIN/TAZO/PMX 3.375GM 50 ML IV SCH ×2 (03:43→09:02)
[2018-08-08] MEDS: METOPROLOL TARTRATE 25 MG TABLET PO SCH (06:14)
[2018-08-08 06:39] LABS: BASOPHILS # (AUTO) 0.01 x10^3/uL (0-0.1); BASOPHILS % (AUTO) 0 % (0-1); EOSINOPHILS # (AUTO) 0.09 x10^3/uL (0-0.4); EOSINOPHILS % (AUTO) 1 % (1-7); LYMPHOCYTES # (AUTO) 1.02 x10^3/uL (1-3.4); LYMPHOCYTES % (AUTO) 17 % (22-44); MD NO; MEAN CORPUSCULAR HEMOGLOBIN 27.3 pg (27.0-34.8); MEAN CORPUSCULAR HGB CONC 32.8 g/dL (32.4-35.8); MEAN CORPUSCULAR VOLUME 83.3 fL (80-100); MEAN PLATELET VOLUME 6.8 fL (7.4-10.4); MONOCYTES # (AUTO) 0.46 x10^3/uL (0.2-0.8); MONOCYTES % (AUTO) 8 % (2-9); NEUTROPHILS % (AUTO) 74 % (42-75); PLATELET COUNT 380 x10^3/uL (130-400); RED BLOOD COUNT 4.41 x10^6/uL (3.82-5.3); RED CELL DISTRIBUTION WIDTH 17.7 % (9.6-15.2)
[2018-08-08 06:47] LABS: ALANINE AMINOTRANSFERASE 20 U/L (12-78); ALBUMIN 2.3 g/dL (3.4-5.0); ANION GAP 5 mmol/L (5-15); CALCIUM 8.5 mg/dL (8.5-10.1); CHLORIDE 109 mmol/L (98-107); CREATININE 0.65 mg/dL (0.55-1.02)
[2018-08-08 06:50] LABS: ALKALINE PHOSPHATASE 140 U/L (45-117); BILIRUBIN,TOTAL 0.5 mg/dL (0.2-1.0); TOTAL PROTEIN 5.5 g/dL (6.4-8.2)
[2018-08-08] MEDS ORDERED: METO25TA35 PO (08:49)
[2018-08-08] MEDS ORDERED: DOXY100C2 PO (08:49)
[2018-08-08] MEDS ORDERED: CEFD300C37 PO (08:49)
[2018-08-08 08:55] VITALS: BP 132/87
== END 2018-08-08 11:57 | disposition home or self-care (01) | DRG 871 ==
LOC: ED 20:56 → EDIP 22:44 → 4WST 08-06 00:45
PROVIDERS: ADMIT Internal Medicine; ATTEND Internal Medicine
DX: A41.9 Sepsis, unspecified organism (principal); E43 Unspecified severe protein-calorie malnutrition; J96.21 Acute and chronic respiratory failure with hypoxia; J18.9 Pneumonia, unspecified organism; I50.32 Chronic diastolic (congestive) heart failure; I31.3 Pericardial effusion (noninflammatory); J93.9 Pneumothorax, unspecified; J91.8 Pleural effusion in other conditions classified elsewhere; D64.9 Anemia, unspecified; H91.90 Unspecified hearing loss, unspecified ear; I11.0 Hypertensive heart disease with heart failure; Z66 Do not resuscitate; Z99.81 Dependence on supplemental oxygen; Z90.11 Acquired absence of right breast and nipple; Z85.3 Personal history of malignant neoplasm of breast; Z68.26 Body mass index [BMI] 26.0-26.9, adult
CPT/HCPCS: 36415; 71045; 71260; 80048; 80053; 81003; 83605; 83735; 84145; 85025; 85610; 87040; 93005; 93308; 93321; 93325; 96374; 99291; G0378; J1956; J2250; J2543; J3010; J3370; J2310; J7030; J7050